=== PATIENT | male | born 1980 | race Native Hawaiian/Other Pacific Islander ===

== ENCOUNTER 2017-08-26 09:42 | Outpatient (CLI) | payer BC | END 2017-08-26 23:02 | disposition home or self-care (01) | LOC: CT 09:42 | DX: S02.40DA Maxillary fracture, left side, initial encounter for closed fracture (principal); S02.82XA Fracture of other specified skull and facial bones, left side, initial encounter for closed fracture ==

== ENCOUNTER 2018-08-11 10:31 | Outpatient (CLI) | payer BC | END 2018-08-11 23:37 | disposition home or self-care (01) | LOC: CT 10:31 | DX: R30.0 Dysuria (principal); R10.31 Right lower quadrant pain; R10.9 Unspecified abdominal pain; Z87.442 Personal history of urinary calculi ==

== ENCOUNTER 2020-03-18 13:03 | Outpatient (CLI) | payer BC | END 2020-03-18 19:37 | disposition home or self-care (01) | LOC: CT 13:03 | PROVIDERS: ATTEND Physician Assistant | DX: G43.909 Migraine, unspecified, not intractable, without status migrainosus (principal); M54.2 Cervicalgia; V89.2XXA Person injured in unspecified motor-vehicle accident, traffic, initial encounter ==